=== PATIENT | male | born 1985 | race Caucasian/White ===

== ENCOUNTER 2016-10-24 22:43 | Emergency (ER) | payer SELFPAY ==
[2016-10-24 22:52] VITALS: BP 168/99; BMI 31.7
[2016-10-24] MEDS ORDERED: TORADOL 60 MG VIAL ONE (23:39)
--- NOTE | 2016-10-24 23:39 | DR.GENAD ---
HPI - PCP Primary Care Physician: CORTEZ - HPI Comment HPI Comment: fell from ladder(~10 Ft) tonight and now c/o ankle pain. 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 - Nurses notes reviewed Nurses Notes Review: Yes - Source History Provided: Patient - Mode of Arrival Mode of Arrival: Ambulatory - Timing Onset of Chief Complaint: 10/24/16 Came on: Suddenly - Duration Duration: Since Onset How lon Duration: Hours - Severity Severity: Moderate - Modifying Factors Worsens:: weightbearing PMH - PMH Past Medical History: Yes Past Medical History: Hypertension Past Surgical History: Yes Surgical History: Appendectomy - Family History History of Family Medical Conditions: Yes Family Medical History: Diabetes Mellitus, Hypertension - Social History Does patient currently use any type of tobacco product: No Have you used tobacco products in the last 12 months: No Type of Tobacco Use: Cigarettes Does any household member use tobacco: No Alcohol Use: None Do you use any recreational Drugs:: No Lives With: Family Lives Where: Home - infectious screening In the last 2 months have you had wt loss of >10#?: NO Have you had fever, night sweats or hemotysis?: No Have you traveled outside the country in the last 6 months?: No Isolation: Standard ROS - Review of Systems Constitutional: No Symptoms Reported Eyes: No Symptoms Reported ENTM: No Symptoms Reported Respiratoy: No Symptoms Reported Cardiovascular: No Symptoms Reported Gastrointestinal/Abdominal: No Symptoms Reported Genitourinary: No Symptoms Reported Neurological: No Symptoms Reported Musculoskeletal: See HPI, Right, Ankle Integumentary: No Symptoms Reported Hematologic/Lymphatic: No Symptoms Reported Endocrine: No Symptoms Reported Psychiatric: No Symptoms Reported All Other Systems: Reviewed and Negative PE - Vital Signs Vitals: Temperature 98.7 F Pulse Rate 108 Respiratory Rate 16 Blood Pressure 168/99 O2 Sat by Pulse Oximetry 99 - General Limitations: No Limitations General Appearance: Alert, Anxious - Chest Chest Inspection: Normal Inspection, Symmetric Chest Wall Rise - Respiratory Respiratory Exam: Normal Lung Sounds Bilat Respiratory Exam: Bilateral Clear to Auscultation - Cardiovascular Cardiovascular Exam: Regular Rate, Normal Rhythm, Normal Heart Sounds - Extremities Extremities Exam: Edema, Other (lat malleolar TTP on right ankle) - Neurologic Neurological Exam: Alert, Oriented X3, CN II-XII Intact - Psychiatric Psychiatric Exam: Normal Affect - Skin Skin Exam: Warm, Dry, Intact, Normal Color MDM - Differential Diagnosis Differential Diagnosis: strain, fracture, contusion Course - Reevaluation 1st: Unchanged ROR - Labs Reviewed Laboratory Results Reviewed?: Yes - XRAY XRAY Findings: fracture lat malleolus - Diagnosis Discharge Problem: Fracture of malleolus of right ankle Qualifiers: Encounter type: initial encounter Fracture type: closed Qualified Code(s): S82.891A - Other fracture of right lower leg, initial encounter for closed fracture - Discharge Plan Disposition: HOME, SELF-CARE Condition: Stable Prescriptions: Ibuprofen [Motrin Tab 800 mg] 800 mg PO TID #60 tab - Follow ups/Referrals Follow ups/Referrals: NIKO TORO [Primary Care Provider] - 3 days - Instructions Instructions: Ankle Fracture With Rehab-SportsMed Additional Instructions: Refer to ortho.
[2016-10-24] MEDS ORDERED: TORADOL 60 MG VIAL IM ONE ×2 (23:45→23:46)
--- NOTE | 2016-10-25 00:01 | RAD ---
Right ankle, three views Indication: Ankle pain and swelling after fall today Findings: There is nondisplaced fracture of the medial malleolus with minimal widening of the medial clear space. No distal fibular fracture is identified. There is marked soft tissue swelling about t he ankle. Impression: Nondisplaced medial malleolar fracture with suggestion of ligamentous injury. Reported By:
== END 2016-10-25 00:08 | disposition home or self-care (01) ==
LOC: ER 22:43
DX: S82.891A Other fracture of right lower leg, initial encounter for closed fracture (principal); W11.XXXA Fall on and from ladder, initial encounter; Y92.9 Unspecified place or not applicable
CPT/HCPCS: 29515; 73610; 96372; 99282; J1885